=== PATIENT | male | born 1950 | race Caucasian/White ===

== ENCOUNTER → 2016-05-30 19:10 | Outpatient (CLI) | payer MEDICARE | END | disposition home or self-care (01) | LOC: D.LABREF 19:10 | DX: R60.0 Localized edema (principal) ==

== ENCOUNTER → 2016-06-02 17:16 | Outpatient (CLI) | payer MEDICARE | END | disposition home or self-care (01) | LOC: D.US 17:00 | DX: R60.0 Localized edema (principal) ==

== ENCOUNTER → 2016-10-25 20:22 | Outpatient (CLI) | payer MEDICARE | END | disposition home or self-care (01) | LOC: D.LABREF 20:22 | DX: Z13.9 Encounter for screening, unspecified (principal) ==